=== PATIENT | female | born 2000 | race Hispanic/Latino ===

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

== ENCOUNTER 2023-08-25 12:05 | Emergency (ER) | payer MEDICAID, OTHER ==
[~2023-08-25] VITALS: Ht 160 cm; Wt 74.4 kg
[2023-08-25] MEDS: ONDANSETRON ODT 4MG TAB SL ONE (13:20)
[2023-08-25] MEDS: ACETAMINOPHEN 500 MG TABLET PO ONE (13:20)
[2023-08-25] MEDS: NEOMY SULF/BACITRA/POLYMYXIN B 1 EACH PACKET TP ONE (13:20)
[2023-08-25] MEDS ORDERED: ONDA4TAB10 PO (14:14)
[2023-08-25 14:18] VITALS: BP 132/84; PULSE 102; RESP 18; O2SAT 99
== END 2023-08-25 14:22 | disposition home or self-care (01) ==
LOC: EDH 12:05
DX: S00.83XA Contusion of other part of head, initial encounter (principal); W18.39XA Other fall on same level, initial encounter; Y93.89 Activity, other specified; Y92.89 Other specified places as the place of occurrence of the external cause; Y99.8 Other external cause status
CPT/HCPCS: 36415; 70486; 84703